=== PATIENT | male | born 1990 | race African-American/Black ===

== ENCOUNTER 2022-02-21 18:19 | Emergency (ER) | payer SELFPAY ==
[2022-02-21] MEDS ORDERED: VENTOLIN HFA IN18 GM INH (19:05)
== END 2022-02-21 19:23 | disposition home or self-care (01) ==
LOC: FER 18:19
DX: R06.00 Dyspnea, unspecified (principal); F17.200 Nicotine dependence, unspecified, uncomplicated; Z28.310 Unvaccinated for COVID-19
CPT/HCPCS: 93005